=== PATIENT | female | born 1985 | race Caucasian/White ===

== ENCOUNTER 2018-03-25 13:06 | Emergency (ER) | payer OTHER ==
[~2018-03-25] VITALS: Ht 167.6 cm; Wt 52.7 kg
[2018-03-25 13:32] VITALS: BP 131/80
[2018-03-25] MEDS ORDERED: ONDA8TAB9 PO (14:41)
== END 2018-03-25 14:52 | disposition home or self-care (01) ==
LOC: ER 13:07
DX: Z02.89 Encounter for other administrative examinations (principal); F15.20 Other stimulant dependence, uncomplicated
CPT/HCPCS: 99283

== ENCOUNTER 2018-08-03 17:07 | Emergency (ER) | payer OTHER ==
[~2018-08-03 17:07] MED LIST: ONDA8TAB9 PO
[2018-08-03 17:16] VITALS: BP 126/84
[2018-08-03] MEDS ORDERED: CEPH500C5 PO (17:34)
== END 2018-08-03 17:59 | disposition home or self-care (01) ==
LOC: ER 17:08
DX: J02.9 Acute pharyngitis, unspecified (principal); F12.90 Cannabis use, unspecified, uncomplicated; J35.1 Hypertrophy of tonsils; Z79.2 Long term (current) use of antibiotics; Z79.899 Other long term (current) drug therapy
CPT/HCPCS: 87081; 87880; 99283

== ENCOUNTER 2018-11-15 09:20 | Emergency (ER) | payer MEDICAID ==
[~2018-11-15] VITALS: Ht 167.6 cm; Wt 60.0 kg
[~2018-11-15 09:20] MED LIST changes: +CEPH500C5 PO
--- NOTE | 2018-11-15 09:28 | NUR ---
pt in bathroom unable to go to triage.
[2018-11-15 09:32] VITALS: BP 122/63
[2018-11-15] MEDS ORDERED: ibuprofen tablet 400 MG TABLET PO STA (10:20)
[2018-11-15] MEDS ORDERED: ibuprofen 200mg tablet PO STA (10:23)
== END 2018-11-15 10:28 | disposition home or self-care (01) ==
LOC: ER 09:20
DX: M25.512 Pain in left shoulder (principal); M54.6 Pain in thoracic spine; F17.200 Nicotine dependence, unspecified, uncomplicated; F12.90 Cannabis use, unspecified, uncomplicated; Z79.899 Other long term (current) drug therapy
CPT/HCPCS: 99284

== ENCOUNTER 2021-04-04 16:09 | Emergency (ER) | payer MEDICAID ==
[~2021-04-04] VITALS: Ht 167.6 cm; Wt 59.1 kg
[~2021-04-04 16:09] MED LIST changes: -CEPH500C5 PO
[2021-04-04 16:17] VITALS: BP 108/63
== END 2021-04-04 17:39 | disposition home or self-care (01) ==
LOC: ER 16:10
DX: S92.532A Displaced fracture of distal phalanx of left lesser toe(s), initial encounter for closed fracture (principal); X58.XXXA Exposure to other specified factors, initial encounter; Y93.89 Activity, other specified; Y92.89 Other specified places as the place of occurrence of the external cause; Y99.8 Other external cause status
CPT/HCPCS: 73660; 99283